=== PATIENT | female | born 1995 ===

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

== ENCOUNTER 2017-08-27 11:57 | Emergency (ER) | payer MEDICAID ==
[2017-08-27 11:57] VITALS: BMI 22.6
--- NOTE | 2017-08-27 13:10 | C.PDOC ---
History Of Present Illness 22 yo female w/o significant PMHx come inf or evaluation of cold sx gradually developed since yesterday and associated with fever, bodyaches, malaise, sore throat, dry cough. Otherwise, pt denies headache, dizziness, drooling, dysphagia , dyspnea, chest pain, shortness of breath, wheezing, abd. pain, N/V/D, UTI sx, back pain. (+) sick contact similar sx family member. Ambulate to ED, not in any apparent distress. Time Seen by Provider: 08/27/17 12:25 Chief Complaint (Nursing): Fever History Per: Patient Onset/Duration Of Symptoms: Gradual Past Medical History Reviewed: Historical Data, Nursing Documentation, Vital Signs Vital Signs: Last Vital Signs Temp 99.4 F 08/27/17 12:20 Pulse 118 H 08/27/17 12:20 Resp 18 08/27/17 12:20 BP 116/76 08/27/17 12:20 Pulse Ox 99 08/27/17 13:10 - Medical History PMH: No Chronic Diseases Surgical History: No Surg Hx Family History: States: Unknown Family Hx - Social History Hx Tobacco Use: No Hx Alcohol Use: No Hx Substance Use: No - Immunization History Hx Tetanus Toxoid Vaccination: No Hx Influenza Vaccination: No Hx Pneumococcal Vaccination: Yes Review Of Systems Except As Marked, All Systems Reviewed And Found Negative. Constitutional: Positive for: Fever, Malaise ENT: Positive for: Nose Discharge, Nose Congestion, Throat Pain, Throat Swelling. Negative for: Ear Discharge Cardiovascular: Negative for: Chest Pain, Palpitations, Light Headedness Respiratory: Positive for: Cough. Negative for: Shortness of Breath, Sputum, Wheezing Gastrointestinal: Negative for: Nausea, Vomiting, Abdominal Pain, Diarrhea Genitourinary: Negative for: Dysuria, Frequency Musculoskeletal: Negative for: Neck Pain, Back Pain Skin: Negative for: Rash Neurological: Negative for: Weakness, Numbness, Altered Mental Status, Headache , Dizziness Physical Exam - Physical Exam Appears: Well, Non-toxic, No Acute Distress Skin: Normal Color, Warm, Dry, No Rash Head: Normacephalic Eye(s): bilateral: PERRL Ear(s): Bilateral: Normal Nose: No Flaring, Discharge (B/L clear rhinorrhea) Oral Mucosa: Moist, No Drooling Tongue: Normal Appearing Lips: Normal Appearing Throat: Erythema (mild), No Drooling Neck: Trachea Midline, Supple, Other ((-) meningeal sign) Cardiovascular: Rhythm Regular, No Murmur, No JVD Respiratory: No Decreased Breath Sounds, No Accessory Muscle Use, No Stridor, No Wheezing Gastrointestinal/Abdominal: Soft, No Tenderness, No Distention, No Guarding Back: No CVA Tenderness Extremity: Normal ROM, No Deformity, No Swelling Neurological/Psych: Oriented x3, Normal Speech ED Course And Treatment O2 Sat by Pulse Oximetry: 99 Pulse Ox Interpretation: Normal Progress Note: On re-eval, pt is afebrile, hemodynamicaly stable. NOn-toxic. Tolerate PO well in ED. PulseOx 99% RA. ENT: no acute findings. Uvula midline , no edmea. Neck: SUpple, (-) meningeal sign. Lungs: CTA B/L, BS equal B/L. Abd: benign. Back: (-) CVA tenderness. Neurologicaly intact. Pt has clinical findings c/w Influenza- like illness. Pt advised and ref. to F/U with PMD In 2- 3 days for re-eval. return if any new changes. Disposition Counseled Patient/Family Regarding: Diagnosis, Need For Followup, Rx Given - Disposition Referrals: Nader Purcell MD [Medical Doctor] - Disposition: HOME/ ROUTINE Disposition Time: 13:17 Condition: STABLE Additional Instructions: ENCOURAGE FLUIDS TAKE MEDICATION PRESCRIBED BEDREST FOLLOW UP WITH PMD IN 2-3 DAYS FOR RE-EVALUATION. RETURN TO E IF ANY WORSENING OR NEW CHANGES, Prescriptions: Ibuprofen [Motrin Tab] 600 mg PO Q6 #20 tab Oseltamivir Phosphate [Tamiflu] 75 mg PO BID #10 capsule Instructions: Influenza (ED) Forms: [employer] (Burmese), School Excuse - Clinical Impression Clinical Impression: Influenza-like illness
[2017-08-27 14:01] VITALS: BP 115/73; PULSE 110; RESP 20; TEMP 98.8; O2SAT 97
== END 2017-08-27 14:01 | disposition home or self-care (01) ==
LOC: C.ER 11:57
DX: J11.1 Influenza due to unidentified influenza virus with other respiratory manifestations (principal)

== ENCOUNTER 2018-07-12 17:24 | Emergency (ER) | payer MEDICAID ==
[2018-07-12 17:34] VITALS: BMI 27.4
[2018-07-12 17:35] VITALS: RESP 20; TEMP 98.4
[2018-07-12 18:17] VITALS: BP 121/75; PULSE 93; O2SAT 100
--- NOTE | 2018-07-12 21:16 | C.PDOC ---
History Of Present Illness 23 year old female presents to the ED for evaluation of left ankle pain which began one week ago. Patient states she has a callus at the bottom of her left foot, which has been making her gait different from her usual. She denies falls/trauma to the area of extremity numbness/weakness. Time Seen by Provider: 07/12/18 17:38 Chief Complaint (Nursing): Lower Extremity Problem/Injury History Per: Patient History/Exam Limitations: no limitations Onset/Duration Of Symptoms: Days (one week ) Current Symptoms Are (Timing): Still Present Additional History Per: Patient - Ankle/Foot Description Of Injury: denies: Fell, Struck With Object, Struck Against Object, Twisted Past Medical History Reviewed: Historical Data, Nursing Documentation, Vital Signs Vital Signs: Last Vital Signs Temp 98.4 F 07/12/18 17:31 Pulse 93 H 07/12/18 18:17 Resp 20 07/12/18 18:17 BP 121/75 07/12/18 18:17 Pulse Ox 100 07/12/18 18:17 - Medical History PMH: No Chronic Diseases Surgical History: No Surg Hx Family History: States: Unknown Family Hx - Social History Hx Tobacco Use: No Hx Alcohol Use: Yes Hx Substance Use: No - Immunization History Hx Tetanus Toxoid Vaccination: No Hx Influenza Vaccination: No Hx Pneumococcal Vaccination: No Review Of Systems Musculoskeletal: Positive for: Other (left ankle pain ) Skin: Positive for: Other (callus to the bottom of foot ) Neurological: Negative for: Weakness, Numbness Physical Exam - Physical Exam Appears: Non-toxic, No Acute Distress Skin: Warm, Dry, Other (callus at plantar aspect of left foot ) Extremity: Normal ROM, No Tenderness, Capillary Refill (less than 2 seconds ), No Swelling Neurological/Psych: Oriented x3, Normal Speech, Normal Cognition, Normal Sensa tion ED Course And Treatment O2 Sat by Pulse Oximetry: 100 (on RA) Pulse Ox Interpretation: Normal Medical Decision Making Medical Decision Making: Progress: On reassessment, patient is resting comfortably, showing no signs of distress and is stable for discharge. Patient is advised to f/u with her PMD within 1-2 days for further evaluation. Advised to return to the ED if symptoms persist or worsen. Disposition - Disposition Referrals: Sal Berger, [Non-Staff] - Disposition: HOME/ ROUTINE Disposition Time: 18:00 Condition: GOOD Additional Instructions: [employer], thank you for letting us take care of you today. The emergency medical care you received today was directed at your acute symptoms. If you were prescribed any medication, please fill it and take as directed. It may take several days for your symptoms to resolve. Return to the Emergency Department if your symptoms worsen, do not improve, or if you have any other problems. Please contact your doctor or call one of the physicians/clinics you have been referred to that are listed on the Patient Visit Information form that is inc luded in your discharge packet. Bring any paperwork you were given at discharge with you along with any medications you are taking to your follow up visit. Our treatment cannot replace ongoing medical care by a primary care provider outside of the emergency department. Thank you for allowing the [facility] team to be part of your care today. Continue using the cream that you already have. Follow up with your primary care doctor if you have any concerns. Instructions: Athlete's Foot (DC) Forms: [facility] (Frisian) - Clinical Impression Clinical Impression: Ankle pain - Scribe Statement The provider has reviewed the documentation as recorded by the Scribe (Patricia Mcneil) Provider Attestation: All medical record entries made by the Scribe were at my direction and personally dictated by me. I have reviewed the chart and agree that the record accurately reflects my personal performance of the history, physical exam, medical decision making, and the department course for this patient. I have also personally directed, reviewed, and agree with the discharge instructions and disposition.
== END 2018-07-12 18:17 | disposition home or self-care (01) ==
LOC: C.ER 17:24
DX: M25.572 Pain in left ankle and joints of left foot (principal)